=== PATIENT | female | born 1995 | race Caucasian/White ===

== ENCOUNTER → 2019-12-18 | Outpatient (CLI) | payer OTHER ==
--- NOTE | 2019-12-18 14:13 | REP ---
HIDA SCAN WITH GALLBLADDER EJECTION FRACTION: Following the intravenous administration of 6.5 mCi technetium 99m mebrofenin, multiple images of the right upper quadrant are performed every 5 minutes for a period of 1 hour. Gallbladder is visualized at 10 minutes postinjection. There is cskwlyz-ja-[id number] transit at 20 minutes postinjection. There is no scintigraphic evidence of cholecystitis. At the 1-hour lake, 8 ounces of Ensure Enlive is ingested and further imaging performed for 1 hour. Gallbladder activity is measured. At the end of 60 minutes, gallbladder ejection fraction is calculated to be 51%, which is normal. IMPRESSION: Normal gallbladder ejection fraction. Electronically Signed by Stephen Murphy MD 12/18/2019 02:25 P
== END ==
LOC: M RAD 08:26
PROVIDERS: ATTEND Surgery
DX: R10.11 Right upper quadrant pain (principal)
CPT/HCPCS: 78227; A9537